=== PATIENT | female | born 1995 | race Caucasian/White ===

== ENCOUNTER 2018-10-27 20:13 | Emergency (ER) | payer MEDICAID, OTHER ==
[2018-10-27] MEDS: IBUPROFEN 600 MG TAB PO (22:18)
[2018-10-27] MEDS: BACITRACIN 0.5%/ZINC 28.35 GM OINT TOP (22:36)
[2018-10-27] MEDS: NEOMYC/POLYMYX/BACIT 30 GM OINT TOP (22:36)
[2018-10-27] MEDS: BACITRACIN 0.9 GM OINT TOP (22:55)
== END 2018-10-27 23:00 | disposition home or self-care (01) ==
LOC: FTE 20:13
DX: S01.511A Laceration without foreign body of lip, initial encounter (principal); W01.0XXA Fall on same level from slipping, tripping and stumbling without subsequent striking against object, initial encounter; Y92.9 Unspecified place or not applicable
CPT/HCPCS: 12011; 99283-25